=== PATIENT | female | born 1945 | race Caucasian/White ===

== ENCOUNTER 2017-07-06 19:28 | Emergency (ER) | END 2017-07-06 22:37 | disposition home or self-care (01) ==

== ENCOUNTER 2017-07-28 13:10 | Emergency (ER) | END 2017-07-28 14:30 | disposition home or self-care (01) ==

== ENCOUNTER 2017-12-20 18:40 | Emergency (ER) | END 2017-12-20 23:00 | disposition home or self-care (01) ==

== ENCOUNTER 2018-09-19 10:11 | Observation (INO) | payer MEDICARE, OTHER ==
[~2018-09-19] VITALS: Wt 81.2 kg
[~2018-09-19 10:11] MED LIST: ACET1TAB40 PO; AMLO5TAB4 PO; CEPH-443 PO; CLON0.3T PO; CLON1PAT3 TD; CLOT15CR6 TOP; CRES20 PO; DONE10TA7 PO; ESOM40CA PO; HYDR-3980 PO; HYDR25TA6 PO; LEVO25TA6 PO; LINA145C PO; LORA-441 PO; LOSA1TAB25 PO; MECL-77 PO; METF500T24 PO; MIRT30TA5 PO; NAPR-688 PO; ONDA4TAB14 PO; TRAM50TA PO; TRIA15CR55 TOP; VERA120C2 PO; ZOLP5TAB7 PO
[2018-09-19 10:15] VITALS: Wt 81.2 kg
[2018-09-19] MEDS ORDERED: PANTOPRAZOLE 40 MG INJ IV STA (10:44)
[2018-09-19] MEDS ORDERED: SOD CHLORIDE 0.9% 1,000 ML IV STA (10:44)
[2018-09-19] MEDS ORDERED: ONDANSETRON 4 MG INJ IV STA ×2 (10:44→12:59)
[2018-09-19] MEDS ORDERED: FAMOTIDINE 20 MG TAB PO STA (10:46)
[2018-09-19] MEDS ORDERED: BELLADONNA/PHENOBARBITAL TAB PO STA (10:46)
[2018-09-19] MEDS ORDERED: KETOROLAC 15 MG INJ IV STA (10:46)
[2018-09-19] MEDS ORDERED: LIDOCAINE/MYLANTA 40 ML BTL PO STA (10:46)
[2018-09-19] MEDS ORDERED: LORAZEPAM 2 MG INJ IV ONE (11:00)
--- NOTE | 2018-09-19 11:14 | ERD ---
ER Documentation Chief Complaint Chief Complaint AP WITH NAUSEA TODAY HPI 73-year-old woman complaining of sharp nonexertional nonradiating epigastric abdominal pain, burning throat pain, belching, bloating, upper abdominal distention x2 days. She has had severe nausea has been eating less due to nausea but denies vomiting. She denies blood per rectum or melena, no chest pain or shortness of breath, no headache or blurry vision. Patient does have a history of gastritis but ran out of her gastritis medications a few months ago, upper endoscopy performed about 10 years ago that she states revealed gastritis. ROS All systems reviewed and are negative except as per history of present illness. Medications Home Meds Active Scripts Ondansetron (Ondansetron Odt) 4 Mg Tab.rapdis, 4 MG PO Q6H PRN for NAUSEA AND/OR VOMITING, #10 TAB Prov:WILLIE FARIAS MD 12/20/17 Reported Medications Acetaminophen* (Acetaminophen*) 500 MG Extra Strength Tablet, 500 MG PO Q4H PRN for PAIN AND OR ELEVATED TEMP, TAB 09/19/18 Nitroglycerin* (Nitrostat*) 0.4 Mg Tab.subl, 0.4 MG SL Q5MIN PRN for CHEST PAIN, BOTTLE 09/19/18 Hydralazine Hcl* (Hydralazine Hcl*) 100 Mg Tablet, 1 TAB ORAL TID 09/19/18 Diltiazem Hcl (DILTIAZEM 24HR CD) 180 Mg Cap.er.24h, 1 CAP ORAL DAILY 09/19/18 Metoprolol Tartrate (Metoprolol Tartrate) 100 Mg Tablet, 1 TAB ORAL BID 09/19/18 Aspirin (Aspirin) 81 Mg Chew, 1 TAB ORAL DAILY 09/19/18 Triamcinolone Acetonide* (Kenalog*) 0.1%-15GM Cr, 1 APPLIC TOP TID, #1 TUB 07/06/17 Donepezil* (Donepezil*) 10 Mg Tablet, 10 MG PO DAILY, #30 TAB 07/06/17 Linaclotide (LINZESS) 145 Mcg Capsule, 145 MCG PO DAILY, #30 CAP 07/06/17 Rosuvastatin Calcium* (Crestor*) 20 Mg Tablet, 20 MG PO QHS, #30 TAB 07/06/17 Esomeprazole Mag Trihydrate (Nexium) 40 Mg Capsule.dr, 40 MG PO DAILY, #30 CAP 07/06/17 Mirtazapine* (Mirtazapine*) 30 Mg Tablet, 30 MG PO DAILY, TAB 07/06/17 Losartan-Hydrochlorothiazide (Losartan-HCTZ) 100-25 Mg Tab, 1 TAB PO DAILY, TAB 07/06/17 Zolpidem Tartrate* (Zolpidem Tartrate*) 5 Mg Tablet, 5 MG PO QHS PRN for INSOMNIA, #30 TAB 07/06/17 Amlodipine Besylate* (Norvasc*) 5 Mg Tablet, 5 MG PO DAILY, TAB 07/06/17 Verapamil Hcl* (Verapamil ER*) 120 Mg Cap24h.pel, 120 MG PO DAILY, CAP 07/06/17 Clotrimazole-Betamethasone Diprop (Clotrimazole-Betamethasone Diprop) 15 Gm Cream.gm., 1 APPLIC TOP BID, TUB 07/06/17 Clonidine Patch (CLONIDINE PATCH) 0.3 Mg/24 Hr Patch, 1 PATCH.WK TD Q7D, #4 PATCH.WK ON Monday07/06/17 Levothyroxine Sodium* (Levothyroxine Sodium*) 25 Mcg Tablet, 25 MCG PO BEFORE BREAKFAST, #30 TAB 07/06/17 Meclizine Hcl* (Meclizine Hcl*) 25 Mg Tablet, 25 MG PO BID PRN for DIZZINESS, TAB 07/06/17 Clonidine Hcl* (Clonidine Hcl*) 0.3 Mg Tablet, 0.3 MG PO TID PRN for HTN, TAB 07/06/17 Discontinued Reported Medications Tramadol Hcl* (Ultram*) 50 Mg Tablet, 50 MG PO BID PRN for PAIN, TAB 07/06/17 Metformin Hcl* (Metformin Hcl*) 500 Mg Tablet, 500 MG PO WITH BREAKFAST DINNE, #60 TAB 07/06/17 Naproxen* (Naproxen*) 500 Mg Tablet, 500 MG PO DAILY, TAB 07/06/17 Hydrochlorothiazide* (Hydrochlorothiazide*) 25 Mg Tab, 25 MG PO DAILY, #30 TAB 07/06/17 Acetaminophen with Codeine (Acetaminophen-Cod #3 Tablet) 1 Each Tablet, 1 TAB PO DAILY PRN for NEEDED, #20 TAB 07/06/17 Discontinued Scripts Hydrocodone/Acetaminophen ([place] 10-325 Tablet) 1 Each Tablet, 1 TAB PO Q6H PRN for PAIN, #7 TAB Prov:WILLIE FARISA MD 12/20/17 Lorazepam* (Ativan*) 0.5 Mg Tablet, 0.5 MG PO TID PRN for ANXIETY, #12 TAB Prov:JIN PEDRAZA MD 07/28/17 Cephalexin* (Keflex*) 500 Mg Capsule, 500 MG PO QID for 5 Days, CAP Prov:JIN PEDRAZA MD 07/28/17 Allergies Allergies: Coded Allergies: No Known Allergies (Verified Allergy, Unknown, 09/19/18) PMhx/Soc History of gastritis status post upper endoscopy about 10 years ago, hypertension, anxiety, hypothyroidism, atrial fibrillation History of Surgery: No Anesthesia Reaction: No Hx Neurological Disorder: No Hx Respiratory Disorders: No Hx Cardiac Disorders: Yes (HTN) Hx Psychiatric Problems: No Hx Miscellaneous Medical Probl: Yes (HTN) Hx Alcohol Use: No Hx Substance Use: No Hx Tobacco Use: No Smoking Status: Never smoker FmHx Family History: No diabetes Physical Exam Vitals Vital Signs Date Temp Pulse Resp B/P (MAP) Pulse Ox O2 O2 Flow FiO2 Time Delivery Rate 09/19/18 85 18 122/72 100 Room Air 12:14 (89) 09/19/18 98.4 86 18 177/105 98 10:15 (129) Physical Exam GENERAL: Well-developed, well-nourished, appears dehydrated, afebrile, anxious HEENT: Dry mucous membranes, pink conjunctiva, no cervical spine tenderness or step-off deformities, no goiter, no jaundice or icterus, extraocular movements intact without pain. No submandibular induration, and no pharyngeal erythema NEURO: Alert and oriented 3, cranial nerves II through XII intact bilaterally, pupils equal round reactive to light, no focal deficits or facial asymmetry, sensation intact distally Strength 5/5 in upper and lower extremities bilaterally CARDIAC: Regular rate and rhythm, no murmurs rubs or gallops LUNGS: Clear bilaterally no wheezing crackles or stridor ABDOMEN: Soft nontender, no guarding, no rigidity, no rebound, no psoas sign no obturator sign. SKIN: Warm and dry to touch, no abrasions, contusions, or hematomas, no lacerations, no ecchymosis, no target lesions, and without ulcers EXTREMITIES: No clubbing cyanosis or edema, calves are bilaterally symmetrical, no Homans sign, no popliteal cord sign. Distal pulses equal and bilateral PSYCH: Acutely anxious Result Diagram: 09/19/18 1108 09/19/18 1108 Results 24 hrs Laboratory Tests Test 09/19/18 11:08 White Blood Count 8.0 10^3/ul Red Blood Count 4.56 10^6/ul Hemoglobin 13.1 g/dl Hematocrit 40.8 % Mean Corpuscular Volume 89.5 fl Mean Corpuscular Hemoglobin 28.7 pg Mean Corpuscular Hemoglobin Concent 32.1 g/dl Red Cell Distribution Width 13.2 % Platelet Count 355 10^3/UL Mean Platelet Volume 10.2 fl Immature Granulocytes % 0.400 % Neutrophils % 67.0 % Lymphocytes % 26.9 % Monocytes % 4.6 % Eosinophils % 0.9 % Basophils % 0.2 % Nucleated Red Blood Cells % 0.0 /100WBC Immature Granulocytes # 0.030 10^3/ul Neutrophils # 5.4 10^3/ul Lymphocytes # 2.2 10^3/ul Monocytes # 0.4 10^3/ul Eosinophils # 0.1 10^3/ul Basophils # 0.0 10^3/ul Nucleated Red Blood Cells # 0.0 10^3/ul Prothrombin Time 11.7 Sec Prothrombin Time Ratio 0.9 INR International Normalized Ratio 0.85 Activated Partial Thromboplast Time 28.6 Sec Sodium Level 143 mmol/L Potassium Level 5.0 mmol/L Chloride Level 110 mmol/L Carbon Dioxide Level 22 mmol/L Anion Gap 11 Blood Urea Nitrogen 13 mg/dl Creatinine 0.71 mg/dl Est Glomerular Filtrat Rate mL/min mL/min Glucose Level 116 mg/dl Calcium Level 9.9 mg/dl Total Bilirubin 0.3 mg/dl Direct Bilirubin 0.00 mg/dl Indirect Bilirubin 0.3 mg/dl Aspartate Amino Transf (AST/SGOT) 24 IU/L Alanine Aminotransferase (ALT/SGPT) 21 IU/L Alkaline Phosphatase 86 IU/L Troponin I < 0.012 ng/ml Total Protein 7.8 g/dl Albumin 4.2 g/dl Globulin 3.60 g/dl Albumin/Globulin Ratio 1.16 Lipase 182 U/L Current Medications Medications Dose Sig/Anjelica Start Time Status Last (Trade) Ordered Route PRN Stop Time Admin Dose Reason Admin Lorazepam 0.5 mg ONCE ONCE 09/19/18 DC 09/19/18 (Ativan) IV 11:00 09/19/18 10:58 11:01 Sodium 1,000 ml @ Q1H STAT 09/19/18 DC 09/19/18 Chloride 1,000 mls/hr IV 10:44 09/19/18 10:56 11:43 40 mg ONCE STAT 09/19/18 DC 09/19/18 Pantoprazole IV 10:44 09/19/18 10:59 (Protonix 10:46 Iv) Ondansetron 4 mg ONCE STAT 09/19/18 DC 09/19/18 HCl (Zofran IV 10:44 09/19/18 10:58 Inj) 10:46 Famotidine 20 mg ONCE STAT 09/19/18 DC 09/19/18 (Pepcid) PO 10:46 09/19/18 10:58 10:47 40 ml ONCE STAT 09/19/18 DC 09/19/18 Miscellaneous PO 10:46 09/19/18 10:58 Medication 10:47 (Gi Cocktail (2)) Belladonna/ 2 tab ONCE STAT 09/19/18 DC 09/19/18 Phenobarbital PO 10:46 09/19/18 10:58 () 10:47 Ketorolac 15 mg ONCE STAT 09/19/18 DC 09/19/18 Tromethamine IV 10:46 09/19/18 10:58 (Toradol) 10:47 Morphine 4 mg ONCE STAT 09/19/18 DC Sulfate IV 12:59 09/19/18 (morphine) 13:00 Ondansetron 4 mg ONCE STAT 09/19/18 DC HCl (Zofran IV 12:59 09/19/18 Inj) 13:00 [facility] IV line was established patient was placed on quality assurance monitor body rhythm strip revealed a sinus rhythm at about 80 bpm with upright P and T waves. Patient was afebrile EKG performed, read by me revealed an atrial fibrillation rate controlled at 85 bpm, left axis deviation, narrow QRS complex, no concerning ST elevations or depressions noted 1 view chest x-ray performed, read by me revealed linear atelectasis in the right lung, no air under the diaphragm, no pneumothorax, no acute infiltrates I administered 500 cc normal saline IV, lorazepam 0.5 mg IV, Toradol 15 mg IV, Zofran 4 mg IV, Protonix 40 mg IV, famotidine 20 mg p.o., GI cocktail p.o. For continued abdominal pain administered morphine 4 mg IV and another dose of Zofran 4 mg IV CBC and electrolytes were normal, liver function tests normal, troponin negative, urinalysis is pending I will follow-up. I paged Dr. Judith GLASGOW regarding the patient's presentation and symptomatology. Patient will be admitted to [facility] for continued medical management, IV hydration, pain control, possible upper endoscopy pending GI consultation Departure Diagnosis: Primary Impression: Abdominal pain Abdominal location: epigastric Qualified Codes: R10.13 - Epigastric pain Additional Impressions: Acute anxiety Intractable abdominal pain Intractable nausea and vomiting Vomiting type: unspecified Qualified Codes: R11.2 - Nausea with vomiting, unspecified Gastritis Gastritis type: unspecified gastritis Chronicity: acute Gastritis bleeding: without bleeding Qualified Codes: K29.00 - Acute gastritis without bleeding Condition: Stable JIN PEDRAZA MD September 19, 2018 11:14
[2018-09-19] MEDS ORDERED: ASPI-831 ORAL (11:38)
[2018-09-19] MEDS ORDERED: NITR0.4T39 SL (11:38)
[2018-09-19] MEDS ORDERED: DILT180C81 ORAL (11:38)
[2018-09-19] MEDS ORDERED: METO100T11 ORAL (11:38)
[2018-09-19] MEDS ORDERED: HYDR100T25 ORAL (11:38)
[2018-09-19] MEDS ORDERED: ACET-141 PO (11:40)
[2018-09-19] MEDS ORDERED: morphine 4 MG/ML VIAL IV STA (12:59)
--- NOTE | 2018-09-19 13:46 | CONS ---
Assessment/Plan Assessment/Plan Hospital Course (Demo Recall) Assessment: Epigastric pain -R/o gastritis vs PUD vs other Nausea- without vomiting Bloating/gas HTN Assessment: PPI BID Simethicone PRN Clear liquid diet Npo after 09/20/18 0600 EGD tomorrow -Risk/benefits of sedation and procedure have been reviewed and patient agrees to move forward with procedure tomorrow Patient seen in collaboration with Dr. 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 She denies overt signs of GI bleed including melena, hematochezia, or hematemesis. Her last upper endoscopy was completed in 2009 showing some nodularity in the stomach as well as gastritis, colonoscopy was completed at that time positive for polyps. Pathology was not available to review. Time evaluation patient complained of significant epigastric pain with mild palpation she is noted to have elevated heart rate and blood pressure at this time. Her members at bedside who states patient does take Motrin or Advil however patient denies this. Discussed plan for upper endoscopy reviewed risk/benefits of both procedure and sedation understanding was verbalized and patient agreed to move forward with procedure. Review of Systems: A 12 system, review was conducted and is negative except as noted in the HPI or here. Past Medical History Home Meds Active Scripts Ondansetron (Ondansetron Odt) 4 Mg Tab.rapdis, 4 MG PO Q6H PRN for NAUSEA AND/OR VOMITING, #10 TAB Prov:WILLIE FARIAS MD 12/20/17 Reported Medications Acetaminophen* (Acetaminophen*) 500 MG Extra Strength Tablet, 500 MG PO Q4H PRN for PAIN AND OR ELEVATED TEMP, TAB 09/19/18 Nitroglycerin* (Nitrostat*) 0.4 Mg Tab.subl, 0.4 MG SL Q5MIN PRN for CHEST PAIN, BOTTLE 09/19/18 Hydralazine Hcl* (Hydralazine Hcl*) 100 Mg Tablet, 1 TAB ORAL TID 09/19/18 Diltiazem Hcl (DILTIAZEM 24HR CD) 180 Mg Cap.er.24h, 1 CAP ORAL DAILY 09/19/18 Metoprolol Tartrate (Metoprolol Tartrate) 100 Mg Tablet, 1 TAB ORAL BID 09/19/18 Aspirin (Aspirin) 81 Mg Chew, 1 TAB ORAL DAILY 09/19/18 Triamcinolone Acetonide* (Kenalog*) 0.1%-15GM Cr, 1 APPLIC TOP TID, #1 TUB 07/06/17 Donepezil* (Donepezil*) 10 Mg Tablet, 10 MG PO DAILY, #30 TAB 07/06/17 Linaclotide (LINZESS) 145 Mcg Capsule, 145 MCG PO DAILY, #30 CAP 07/06/17 Rosuvastatin Calcium* (Crestor*) 20 Mg Tablet, 20 MG PO QHS, #30 TAB 07/06/17 Esomeprazole Mag Trihydrate (Nexium) 40 Mg Capsule.dr, 40 MG PO DAILY, #30 CAP 07/06/17 Mirtazapine* (Mirtazapine*) 30 Mg Tablet, 30 MG PO DAILY, TAB 07/06/17 Losartan-Hydrochlorothiazide (Losartan-HCTZ) 100-25 Mg Tab, 1 TAB PO DAILY, TAB 07/06/17 Zolpidem Tartrate* (Zolpidem Tartrate*) 5 Mg Tablet, 5 MG PO QHS PRN for INSOM BANDAR, #30 TAB 07/06/17 Amlodipine Besylate* (Norvasc*) 5 Mg Tablet, 5 MG PO DAILY, TAB 07/06/17 Verapamil Hcl* (Verapamil ER*) 120 Mg Cap24h.pel, 120 MG PO DAILY, CAP 07/06/17 Clotrimazole-Betamethasone Diprop (Clotrimazole-Betamethasone Diprop) 15 Gm Cream.gm., 1 APPLIC TOP BID, TUB 07/06/17 Clonidine Patch (CLONIDINE PATCH) 0.3 Mg/24 Hr Patch, 1 PATCH.WK TD Q7D, #4 PATCH.WK ON Monday07/06/17 Levothyroxine Sodium* (Levothyroxine Sodium*) 25 Mcg Tablet, 25 MCG PO BEFORE BREAKFAST, #30 TAB 07/06/17 Meclizine Hcl* (Meclizine Hcl*) 25 Mg Tablet, 25 MG PO BID PRN for DIZZINESS, TAB 07/06/17 Clonidine Hcl* (Clonidine Hcl*) 0.3 Mg Tablet, 0.3 MG PO TID PRN for HTN, TAB 07/06/17 Discontinued Reported Medications Tramadol Hcl* (Ultram*) 50 Mg Tablet, 50 MG PO BID PRN for PAIN, TAB 07/06/17 Metformin Hcl* (Metformin Hcl*) 500 Mg Tablet, 500 MG PO WITH BREAKFAST DINNE, #60 TAB 07/06/17 Naproxen* (Naproxen*) 500 Mg Tablet, 500 MG PO DAILY, TAB 07/06/17 Hydrochlorothiazide* (Hydrochlorothiazide*) 25 Mg Tab, 25 MG PO DAILY, #30 TAB 07/06/17 Acetaminophen with Codeine (Acetaminophen-Cod #3 Tablet) 1 Each Tablet, 1 TAB PO DAILY PRN for NEEDED, #20 TAB 07/06/17 Discontinued Scripts Hydrocodone/Acetaminophen ([place] 10-325 Tablet) 1 Each Tablet, 1 TAB PO Q6H PRN for PAIN, #7 TAB Prov:WILLIE FARIAS MD 12/20/17 Lorazepam* (Ativan*) 0.5 Mg Tablet, 0.5 MG PO TID PRN for ANXIETY, #12 TAB Prov:JIN PEDRAZA MD 07/28/17 Cephalexin* (Keflex*) 500 Mg Capsule, 500 MG PO QID for 5 Days, CAP Prov:JIN PEDRAZA MD 07/28/17 Allergies: Coded Allergies: No Known Allergies (Verified Allergy, Unknown, 09/19/18) Social History Smoking Status: Never smoker Exam/Review of Systems Exam Vitals Vital Signs Date Temp Pulse Resp B/P (MAP) Pulse Ox O2 O2 Flow FiO2 Time Delivery Rate 09/19/18 85 18 122/72 100 Room Air 12:14 (89) 09/19/18 98.4 10:15 Exam PHYSICAL EXAMINATION: GENERAL: Alert & oriented x 3, in no acute distress SKIN: No lesions HEAD: Normocephalic, atraumatic, no tenderness. EYES: Pupils equal reactive to light and accommodation, no discharge. EARS/NOSE AND THROAT: Ears normal, nose normal. NECK: Supple, no masses, thyroid normal. CHEST: Inspection within normal limits. CARDIOVASCULAR: Heart: Regular rate and rhythm RESPIRATORY: Lungs clear to auscultation. GASTROINTESTINAL AND LIVER: Abdomen: Soft, epigastric pain worse with palpation, non-distended, no hernias, no masses, no organomegaly, no ascites, no guarding, no rebound tenderness, normoactive bowel sounds. Rectal: Deferred. Results Result Diagram: 09/19/18 1108 09/19/18 1108 Results 24hrs Laboratory Tests Test 09/19/18 11:08 White Blood Count 8.0 Red Blood Count 4.56 Hemoglobin 13.1 Hematocrit 40.8 Mean Corpuscular Volume 89.5 Mean Corpuscular Hemoglobin 28.7 L Mean Corpuscular Hemoglobin Concent 32.1 Red Cell Distribution Width 13.2 Platelet Count 355 Mean Platelet Volume 10.2 Immature Granulocytes % 0.400 Neutrophils % 67.0 Lymphocytes % 26.9 Monocytes % 4.6 Eosinophils % 0.9 Basophils % 0.2 Nucleated Red Blood Cells % 0.0 Immature Granulocytes # 0.030 Neutrophils # 5.4 Lymphocytes # 2.2 Monocytes # 0.4 Eosinophils # 0.1 Basophils # 0.0 Nucleated Red Blood Cells # 0.0 Prothrombin Time 11.7 L Prothrombin Time Ratio 0.9 INR International Normalized Ratio 0.85 Activated Partial Thromboplast Time 28.6 Sodium Level 143 Potassium Level 5.0 Chloride Level 110 Carbon Dioxide Level 22 Anion Gap 11 Blood Urea Nitrogen 13 Creatinine 0.71 Est Glomerular Filtrat Rate mL/min Glucose Level 116 Calcium Level 9.9 Total Bilirubin 0.3 Direct Bilirubin 0.00 Indirect Bilirubin 0.3 Aspartate Amino Transf (AST/SGOT) 24 Alanine Aminotransferase (ALT/SGPT) 21 Alkaline Phosphatase 86 Troponin I < 0.012 Total Protein 7.8 Albumin 4.2 Globulin 3.60 H Albumin/Globulin Ratio 1.16 Lipase 182 INDU KLEIN September 19, 2018 13:46
[2018-09-19] MEDS ORDERED: MECLIZINE 25 MG TAB PO PRN (14:30)
[2018-09-19] MEDS ORDERED: hydrALAzine 20 MG INJ IV PRN (14:30)
[2018-09-19] MEDS ORDERED: LORAZEPAM 2 MG INJ IV PRN (14:30)
[2018-09-19] MEDS ORDERED: NACL 0.9% 3 ML SYG IV SCH (14:30)
[2018-09-19] MEDS ORDERED: HYDROCODONE/APAP (5/325) TAB PO PRN (14:30)
[2018-09-19] MEDS ORDERED: morphine 2 MG INJ IV PRN (14:30)
[2018-09-19] MEDS ORDERED: NITROGLYCERIN (SL) 0.4 MG TAB SL PRN (14:30)
[2018-09-19] MEDS ORDERED: ALBUTEROL/IPRATROPIUM (NEB) 3 ML AMP HHN PRN (14:30)
[2018-09-19] MEDS ORDERED: DOCUSATE SODIUM 100 MG CAP PO PRN (14:30)
[2018-09-19] MEDS ORDERED: ZOLPIDEM 5 MG TAB PO PRN (14:30)
[2018-09-19] MEDS ORDERED: MAGNESIUM HYDROXIDE 30ML CUP PO PRN (14:30)
[2018-09-19] MEDS: SOD CHLORIDE 0.45% 1,000 ML IV SCH ×2 (15:30→20:13)
--- NOTE | 2018-09-19 15:51 | HP ---
DATE OF ADMISSION: 09/19/2018 IDENTIFICATION: This is a 73-year-old female. CHIEF COMPLAINT: Epigastric pain. HISTORY OF PRESENT ILLNESS: A 73-year-old female with past medical history of hypertension, hypothyr oidism, possible anxiety, questionable diabetes, who comes in with epigastric pain. Most of the info rmation is obtained from ER documentation as the patient is unable to provide full HPI secondary to a language barrier at this time. Some subjective fevers. Her symptoms have been going on for the las t 2 days. She had some nausea symptoms, but not vomiting. In the ER, to the staff she denied chest pain or shortness of breath, no upper or lower GI bleeding. That is the full extent of the review o f systems that could be obtained at this time. Apparently the patient has a prior history of gastrit is as well, ran out of her medications for this a few months ago. When she arrived, she was seen by GI team and in the ER today, she had elevated blood pressure 177/105 and also for epigastric pain she received pain control medications and GI cocktail as well as Pepcid and Protonix. PAST MEDICAL HISTORY: As stated above. ALLERGIES: No known drug allergies. MEDICATIONS AT HOME: Based on records: 1. Donepezil 10 mg daily. 2. Norvasc 5 mg daily. 3. Clonidine 0.3 mg p.o. t.i.d. p.r.n. 4. Clonidine patch 0.3 mg q.24h q. weekly. 5. Diltiazem 180 mg daily. 6. Hydralazine 100 mg t.i.d. 7. Losartan/hydrochlorothiazide 100/25 one tab daily. 8. Metoprolol 100 mg b.i.d. 9. Crestor 20 mg at bedtime. 10. Nitroglycerin sublingual p.r.n. 11. Verapamil 120 mg daily. 12. Extra strength Tylenol 500 mg. p.r.n. 13. Aspirin 81 mg daily. 14. Mirtazapine 30 mg daily. 15. Ambien 5 mg p.o. at bedtime p.r.n. 16. Nexium 40 mg daily. 17. Linzess 145 mcg daily. 18. Meclizine 25 mg p.o. b.i.d. p.r.n. 19. Zofran 4 mg p.o. q.6h. p.r.n. 20. Levothyroxine 25 mcg every morning. 21. Kenalog apply topically t.i.d. PAST SURGICAL HISTORY: Unknown. SOCIAL HISTORY: Negative for smoking or drinking or IV drug abuse. FAMILY HISTORY: Noncontributory. PHYSICAL EXAMINATION: VITAL SIGNS: T-max 98.4, pulse 85, respirations 18, blood pressure to 177-122 systolic over 105-72 d iastolic, satting at 98% on room air. GENERAL: The patient is lying in bed, answering questions appropriately, in no acute distress. HEENT: Pupils equal, round, reactive to light. Extraocular muscles intact. NECK: Supple, no thyromegaly. LUNGS: Clear to auscultation bilaterally. CARDIOVASCULAR: S1, S2 heard. No rubs or gallops. ABDOMEN: Tender to palpation in epigastric area, but otherwise no rebound or guarding. Normal bowel sounds, nondistended. MUSCULOSKELETAL: No lower extremity edema bilaterally. NEUROLOGIC: No focal deficits. LABORATORIES: CBC is normal. The basic metabolic panel was normal as well. Comprehensive metabolic panel is normal. Troponin is negative x1. Lipase is normal. The patient had a chest x-ray today s hows mild cardiomegaly, calcified aorta consistent with atherosclerotic disease, right lower lobe maco ear atelectatic changes. CT scan of abdomen and pelvis was ordered, results are still pending. ASSESSMENT AND PLAN: A 73-year-old female with prior history of hypertension, gastritis, and hypothy roidism who presents with epigastric pain for the last 2 days, epigastric pain, likely secondary to g astritis. Denies any upper or lower GI bleeding. 1. Admit the patient, put on low-dose IV fluids. Appreciate GI consult. They are planning for EGD in the next 24 hours, should be on Simethicone p.r.n and on clear liquid diet. 2. Get PT, OT and speech therapy consult as well. 3. Check TSH, A1c, lipid panel. 4. Hypertension. The patient takes multiple blood pressure medicines at home. She did come in with mild borderline hypertensive urgency, which is improved now. Continue current p.o. blood pressure m edicines. Should be on hydralazine and clonidine p.r.n. as well, systolic greater than 160. 5. History of hypothyroidism. Continue levothyroxine. Follow up thyroid panel. 6. Gastrointestinal prophylaxis. PPI. 7. TB prophylaxis, SCDs. Dictated By: DELGADO SIMMONS Conf#: [id number] DID#: [id number]
[2018-09-19] MEDS: PANTOPRAZOLE 40 MG INJ IV SCH (17:15)
[2018-09-19 19:08] VITALS: BP 133/75; PULSE 110; RESP 18
[2018-09-19] MEDS: ONDANSETRON 4 MG INJ IV PRN (20:13)
[2018-09-19] MEDS: ATORVASTATIN 80 MG TAB PO SCH (20:24)
[2018-09-19] MEDS: METOPROLOL 100 MG TAB PO SCH (20:24)
[2018-09-19 20:25] VITALS: BP 177/95; PULSE 118
[2018-09-19] MEDS: TRIAMCINOLONE ACET 0.1% 15 GM CR TOP SCH (21:00)
[2018-09-19] MEDS ORDERED: NON-FORMULARY/PATIENT OWN MED (Rosuvastatin Calcium* (Crestor*) 20 MG) PO SCH (21:00)
[2018-09-19] MEDS: BETAMETHASONE/CLOTRIMAZOLE 15 GM CR TOP SCH (21:00)
[2018-09-19 22:26] VITALS: PULSE 82
[2018-09-19 22:27] VITALS: BP 164/101; PULSE 76; RESP 18
[2018-09-19] MEDS: ACETAMINOPHEN 325 MG TAB PO PRN (23:59)
[2018-09-20] VITALS (19 sets, daily range): BP systolic 92–191; BP diastolic 60–99; PULSE 22–120; RESP 15–22
[2018-09-20] MEDS: ONDANSETRON 4 MG INJ IV PRN (02:53)
[2018-09-20] MEDS: SOD CHLORIDE 0.45% 1,000 ML IV SCH ×2 (03:26→16:46)
[2018-09-20] MEDS: PANTOPRAZOLE 40 MG INJ IV SCH ×2 (06:05→17:26)
[2018-09-20] MEDS: LEVOTHYROXINE 25 MCG TAB PO SCH (06:05)
[2018-09-20] MEDS ORDERED: PROPOFOL 200 MG INJ ONE (07:00)
[2018-09-20] MEDS: METOPROLOL 100 MG TAB PO SCH ×2 (08:21→21:29)
[2018-09-20] MEDS: MIRTAZAPINE 15 MG TAB PO SCH (08:22)
[2018-09-20] MEDS: AMLODIPINE 5 MG TAB PO SCH (08:22)
--- NOTE | 2018-09-20 10:34 | PN ---
Date/Time of Note Date/Time of Note DATE: 09/20/18 TIME: 10:31 Assessment/Plan VTE Prophylaxis Risk score (from Ns)>0 risk: 3 SCD applied (from Ns): Yes Pharmacological prophylaxis: other Lines/Catheters IV Catheter Type (from [facility]): Peripheral IV Assessment/Plan Hospital Course S: Patient seen by GI team yesterday. Did have a brief episode of rapid heart rate overnight, which did not sustain and is now well controlled. Denies any epigastric pain. O: VS - see below PHYSICAL EXAMINATION: GENERAL: lying in bed, answering questions appropriately, in no acute distress. HEENT: Pupils equal, round, reactive to light. Extraocular muscles intact. NECK: Supple, no thyromegaly. LUNGS: Clear to auscultation bilaterally. CARDIOVASCULAR: S1, S2 heard. No rubs or gallops. ABDOMEN: Tender to palpation in epigastric area, but otherwise no rebound or guarding. Normal bowel sounds, nondistended. MUSCULOSKELETAL: No lower extremity edema bilaterally. NEUROLOGIC: No focal deficits. ASSESSMENT AND PLAN: 73-year-old female with prior history of hypertension, gastritis, and hypothyroidism who presents with epigastric pain for the last 2 days. # Epigastric pain- likely secondary to gastritis. Denies any upper or lower GI bleeding. -Continue low-dose IV fluids. -Per GI consult, planning for EGD later today, follow-up post procedure results of this -Follow recommendations from PT, OT and speech therapy consult as well. # Hypertension-blood pressure controlled this morning. Patient takes multiple blood pressure medicines at home. She did come in with mild borderline hyperte nsive urgency, which is improved now. - Continue current p.o. blood pressure medicines. - hydralazine IV and clonidine p.r.n. as well, systolic greater than 160. # History of hypothyroidism. - Continue levothyroxine. Follow up thyroid panel. # Gastrointestinal prophylaxis. PPI. # DVT prophylaxis, SCDs. Result Diagram: 09/20/1843 09/20/1843 Results 24hrs Laboratory Tests Test 09/19/18 11:08 09/19/18 11:09 09/20/18 05:43 White Blood Count 8.0 8.1 Red Blood Count 4.56 4.44 Hemoglobin 13.1 12.8 Hematocrit 40.8 39.7 Mean Corpuscular Volume 89.5 89.4 Mean Corpuscular Hemoglobin 28.7 L 28.8 L Mean Corpuscular Hemoglobin Concent 32.1 32.2 Red Cell Distribution Width 13.2 13.1 Platelet Count 355 349 Mean Platelet Volume 10.2 10.5 H Immature Granulocytes % 0.400 0.500 H Neutrophils % 67.0 65.7 Lymphocytes % 26.9 27.5 Monocytes % 4.6 5.0 Eosinophils % 0.9 0.9 Basophils % 0.2 0.4 Nucleated Red Blood Cells % 0.0 0.0 Immature Granulocytes # 0.030 0.040 H Neutrophils # 5.4 5.3 Lymphocytes # 2.2 2.2 Monocytes # 0.4 0.4 Eosinophils # 0.1 0.1 Basophils # 0.0 0.0 Nucleated Red Blood Cells # 0.0 0.0 Prothrombin Time 11.7 L Prothrombin Time Ratio 0.9 INR International Normalized Ratio 0.85 Activated Partial Thromboplast Time 28.6 Sodium Level 143 142 Potassium Level 5.0 3.8 Chloride Level 110 111 H Carbon Dioxide Level 22 21 Anion Gap 11 10 Blood Urea Nitrogen 13 10 Creatinine 0.71 0.65 Est Glomerular Filtrat Rate mL/min Glucose Level 116 107 Calcium Level 9.9 9.4 Total Bilirubin 0.3 Direct Bilirubin 0.00 Indirect Bilirubin 0.3 Aspartate Amino Transf (AST/SGOT) 24 Alanine Aminotransferase (ALT/SGPT) 21 Alkaline Phosphatase 86 Troponin I < 0.012 Total Protein 7.8 Albumin 4.2 Globulin 3.60 H Albumin/Globulin Ratio 1.16 Lipase 182 Free Thyroxine 1.50 Hemoglobin A1c 5.7 Phosphorus Level 4.1 Magnesium Level 2.0 Triglycerides Level 145 Cholesterol Level 268 H LDL Cholesterol, Calculated 186 HDL Cholesterol 53 Cholesterol/HDL Ratio 5.0 Thyroid Stimulating Hormone (TSH) 0.607 Exam/Review of Systems Exam Vitals Vital Signs Date Temp Pulse Resp B/P (MAP) Pulse Ox O2 O2 Flow FiO2 Time Delivery Rate 09/20/18 98.1 72 19 177/99 97 07:07 (125) 09/19/18 Room Air 17:17 Results Results 24hrs Laboratory Tests Test 09/19/18 11:08 09/19/18 11:09 09/20/18 05:43 White Blood Count 8.0 8.1 Red Blood Count 4.56 4.44 Hemoglobin 13.1 12.8 Hematocrit 40.8 39.7 Mean Corpuscular Volume 89.5 89.4 Mean Corpuscular Hemoglobin 28.7 L 28.8 L Mean Corpuscular Hemoglobin Concent 32.1 32.2 Red Cell Distribution Width 13.2 13.1 Platelet Count 355 349 Mean Platelet Volume 10.2 10.5 H Immature Granulocytes % 0.400 0.500 H Neutrophils % 67.0 65.7 Lymphocytes % 26.9 27.5 Monocytes % 4.6 5.0 Eosinophils % 0.9 0.9 Basophils % 0.2 0.4 Nucleated Red Blood Cells % 0.0 0.0 Immature Granulocytes # 0.030 0.040 H Neutrophils # 5.4 5.3 Lymphocytes # 2.2 2.2 Monocytes # 0.4 0.4 Eosinophils # 0.1 0.1 Basophils # 0.0 0.0 Nucleated Red Blood Cells # 0.0 0.0 Prothrombin Time 11.7 L Prothrombin Time Ratio 0.9 INR International Normalized Ratio 0.85 Activated Partial Thromboplast Time 28.6 Sodium Level 143 142 Potassium Level 5.0 3.8 Chloride Level 110 111 H Carbon Dioxide Level 22 21 Anion Gap 11 10 Blood Urea Nitrogen 13 10 Creatinine 0.71 0.65 Est Glomerular Filtrat Rate mL/min Glucose Level 116 107 Calcium Level 9.9 9.4 Total Bilirubin 0.3 Direct Bilirubin 0.00 Indirect Bilirubin 0.3 Aspartate Amino Transf (AST/SGOT) 24 Alanine Aminotransferase (ALT/SGPT) 21 Alkaline Phosphatase 86 Troponin I < 0.012 Total Protein 7.8 Albumin 4.2 Globulin 3.60 H Albumin/Globulin Ratio 1.16 Lipase 182 Free Thyroxine 1.50 Hemoglobin A1c 5.7 Phosphorus Level 4.1 Magnesium Level 2.0 Triglycerides Level 145 Cholesterol Level 268 H LDL Cholesterol, Calculated 186 HDL Cholesterol 53 Cholesterol/HDL Ratio 5.0 Thyroid Stimulating Hormone (TSH) 0.607 Medications Medication Current Medications Pantoprazole (Protonix Iv) 40 mg BID@06,18 IV Last administered on 09/20/18at 06:05; Admin Dose 40 MG; Start 09/19/18 at 18:00 Simethicone (Mylicon) 80 mg QID PRN PO DISTENSION/GAS/BLOATING; Start 09/19/18 at 14:00 IV Flush (NS 3 ml) 3 ml PER PROTOCOL IV ; Start 09/19/18 at 14:30 Ondansetron HCl (Zofran Inj) 4 mg Q6H PRN IV NAUSEA/VOMITING Last administered on 09/20/18at 02:53; Admin Dose 4 MG; Start 09/19/18 at 14:30 Acetaminophen (Tylenol Tab) 650 mg Q6H PRN PO .PAIN 1-3 OR TEMP Last administered on 09/19/18at 23:59; Admin Dose 650 MG; Start 09/19/18 at 14:30 Acetaminophen/ Hydrocodone Bitart ([place] (5/325)) 1 tab Q6H PRN PO .MOD PAIN 4- 6; Start 09/19/18 at 14:30 Morphine Sulfate (morphine) 2 mg Q4H PRN IV .SEVERE PAIN 7-10; Start 09/19/18 at 14:30 Docusate Sodium (Colace) 100 mg Q12H PRN PO .CONSTIPATION; Start 09/19/18 at 14:30 Magnesium Hydroxide (Milk Of Mag) 30 ml DAILY PRN PO .CONSTIPATION; Start 09/19/18 at 14:30 Sodium Chloride 1,000 ml @ 75 mls/hr [id number] IV Last administered on 09/19/18at 20:13; Admin Dose 75 MLS/HR; Start 09/19/18 at 14:06 Lorazepam (Ativan) 0.5 mg Q6H PRN IV ANXIETY Last administered on 09/20/18at 03:07; Admin Dose 0.5 MG; Start 09/19/18 at 14:30 Albuterol/ Ipratropium (Duoneb) 3 ml Q4H RESP THERAPY PRN HHN SHORTNESS OF SANT[place] ATH; Start 09/19/18 at 14:30 Hydralazine HCl (Apresoline) 10 mg Q6H PRN IV ELEVATED BLOOD PRESSURE; Start 09/19/18 at 14:30 Nitroglycerin (Nitroglycerin (Sl Tab) 0.4 Mg) 1 tab Q5M PRN SL ANGINA; Start 09/19/18 at 14:30 Amlodipine Besylate (Norvasc) 5 mg DAILY PO Last administered on 09/20/18at 08:22; Admin Dose 5 MG; Start 09/20/18 at 09:00 Clonidine (Catapres) 0.3 mg TID PRN PO PRN SBP > 160; Start 09/19/18 at 14:30 Betamethasone/ Clotrimazole (Lotrisone Cr) 1 applic BID TOP ; Start 09/19/18 at 21:00 Hydralazine HCl (Apresoline) 100 mg TID PO Last administered on 09/20/18at 08:21; Admin Dose 100 MG; Start 09/19/18 at 21:00 Levothyroxine Sodium (Synthroid) 25 mcg BEFORE BREAKFAST PO ; Start 09/20/18 at 07:00 Meclizine HCl (Antivert) 25 mg BID PRN PO DIZZINESS; Start 09/19/18 at 14:30 Mirtazapine (Remeron) 30 mg DAILY PO Last administered on 09/20/18at 08:22; Admin Dose 30 MG; Start 09/20/18 at 09:00 Triamcinolone Acetonide (Kenalog 0.1% Cr) 1 applic TID TOP ; Start 09/19/18 at 21:00 Zolpidem Tartrate (Ambien) 5 mg QHS PRN PO INSOMNIA Last administered on 09/20/18at 00:05; Admin Dose 5 MG; Start 09/19/18 at 14:30 Metoprolol Tartrate (Lopressor) 100 mg BID PO Last administered on 09/20/18at 08:21; Admin Dose 100 MG; Start 09/19/18 at 21:00 Verapamil HCl (Isoptin Sr) 120 mg DAILY PO ; Start 09/20/18 at 09:00 Atorvastatin Calcium (Lipitor) 80 mg DAILY@21 PO Last administered on 09/19/18at 20:24; Admin Dose 80 MG; Start 09/19/18 at 21:00 DELGADO OSORIO September 20, 2018 10:34
[2018-09-20] MEDS: VERAPAMIL (SR) 120 MG TAB PO SCH (11:25)
[2018-09-20] MEDS: TRIAMCINOLONE ACET 0.1% 15 GM CR TOP SCH ×3 (13:00→21:00)
--- NOTE | 2018-09-20 14:28 | PREAC ---
Date/Time of Note Date/Time of Note DATE: 09/20/18 TIME: 14:26 Anesthesia Eval and Record Evaluation Time Pre-Procedure Interview DATE: 09/20/18 TIME: 14:26 Age 73 Sex female NPO: 8 hrs Preoperative diagnosis EPIGASTRIC PAIN Planned procedure EGD WITH BX Past Medical History Past Medical History: Includes Cardio: HTN, Arrythmia (A FIB) Endo: Hypothyroid Surgery & Anesthesia Issues No known issue Meds Anticoagulation: No Beta Susan within 24 hr: No Reason Beta Susan not given: Pt. not on B-Susan Active Scripts Ondansetron (Ondansetron Odt) 4 Mg Tab.rapdis, 4 MG PO Q6H PRN for NAUSEA AND/OR VOMITING, #10 TAB Prov:WILLIE FARIAS MD 12/20/17 Reported Medications Acetaminophen* (Acetaminophen*) 500 MG Extra Strength Tablet, 500 MG PO Q4H PRN for PAIN AND OR ELEVATED TEMP, TAB 09/19/18 Nitroglycerin* (Nitrostat*) 0.4 Mg Tab.subl, 0.4 MG SL Q5MIN PRN for CHEST PAIN, BOTTLE 09/19/18 Hydralazine Hcl* (Hydralazine Hcl*) 100 Mg Tablet, 1 TAB ORAL TID 09/19/18 Diltiazem Hcl (DILTIAZEM 24HR CD) 180 Mg Cap.er.24h, 1 CAP ORAL DAILY 09/19/18 Metoprolol Tartrate (Metoprolol Tartrate) 100 Mg Tablet, 1 TAB ORAL BID 09/19/18 Aspirin (Aspirin) 81 Mg Chew, 1 TAB ORAL DAILY 09/19/18 Triamcinolone Acetonide* (Kenalog*) 0.1%-15GM Cr, 1 APPLIC TOP TID, #1 TUB 07/06/17 Donepezil* (Donepezil*) 10 Mg Tablet, 10 MG PO DAILY, #30 TAB 07/06/17 Linaclotide (LINZESS) 145 Mcg Capsule, 145 MCG PO DAILY, #30 CAP 07/06/17 Rosuvastatin Calcium* (Crestor*) 20 Mg Tablet, 20 MG PO QHS, #30 TAB 07/06/17 Esomeprazole Mag Trihydrate (Nexium) 40 Mg Capsule.dr, 40 MG PO DAILY, #30 CAP 07/06/17 Mirtazapine* (Mirtazapine*) 30 Mg Tablet, 30 MG PO DAILY, TAB 07/06/17 Losartan-Hydrochlorothiazide (Losartan-HCTZ) 100-25 Mg Tab, 1 TAB PO DAILY, TAB 07/06/17 Zolpidem Tartrate* (Zolpidem Tartrate*) 5 Mg Tablet, 5 MG PO QHS PRN for INSOM BANDAR, #30 TAB 07/06/17 Amlodipine Besylate* (Norvasc*) 5 Mg Tablet, 5 MG PO DAILY, TAB 07/06/17 Verapamil Hcl* (Verapamil ER*) 120 Mg Cap24h.pel, 120 MG PO DAILY, CAP 07/06/17 Clotrimazole-Betamethasone Diprop (Clotrimazole-Betamethasone Diprop) 15 Gm Cream.gm., 1 APPLIC TOP BID, TUB 07/06/17 Clonidine Patch (CLONIDINE PATCH) 0.3 Mg/24 Hr Patch, 1 PATCH.WK TD Q7D, #4 PATCH.WK ON Monday07/06/17 Levothyroxine Sodium* (Levothyroxine Sodium*) 25 Mcg Tablet, 25 MCG PO BEFORE BREAKFAST, #30 TAB 07/06/17 Meclizine Hcl* (Meclizine Hcl*) 25 Mg Tablet, 25 MG PO BID PRN for DIZZINESS, TAB 07/06/17 Clonidine Hcl* (Clonidine Hcl*) 0.3 Mg Tablet, 0.3 MG PO TID PRN for HTN, TAB 07/06/17 Discontinued Reported Medications Tramadol Hcl* (Ultram*) 50 Mg Tablet, 50 MG PO BID PRN for PAIN, TAB 07/06/17 Metformin Hcl* (Metformin Hcl*) 500 Mg Tablet, 500 MG PO WITH BREAKFAST DINNE, #60 TAB 07/06/17 Naproxen* (Naproxen*) 500 Mg Tablet, 500 MG PO DAILY, TAB 07/06/17 Hydrochlorothiazide* (Hydrochlorothiazide*) 25 Mg Tab, 25 MG PO DAILY, #30 TAB 07/06/17 Acetaminophen with Codeine (Acetaminophen-Cod #3 Tablet) 1 Each Tablet, 1 TAB PO DAILY PRN for NEEDED, #20 TAB 07/06/17 Discontinued Scripts Hydrocodone/Acetaminophen ([place] 10-325 Tablet) 1 Each Tablet, 1 TAB PO Q6H PRN for PAIN, #7 TAB Prov:WILLIE FARIAS MD 12/20/17 Lorazepam* (Ativan*) 0.5 Mg Tablet, 0.5 MG PO TID PRN for ANXIETY, #12 TAB Prov:JIN PEDRAZA MD 07/28/17 Cephalexin* (Keflex*) 500 Mg Capsule, 500 MG PO QID for 5 Days, CAP Prov:JIN PEDRAZA MD 07/28/17 Current Medications Pantoprazole (Protonix Iv) 40 mg BID@,18 IV Last administered on 09/20/18at 06:05; Admin Dose 40 MG; Start 09/19/18 at 18:00 Simethicone (Mylicon) 80 mg QID PRN PO DISTENSION/GAS/BLOATING; Start 09/19/18 at 14:00 IV Flush (NS 3 ml) 3 ml PER PROTOCOL IV ; Start 09/19/18 at 14:30 Ondansetron HCl (Zofran Inj) 4 mg Q6H PRN IV NAUSEA/VOMITING Last administered on 09/20/18at 02:53; Admin Dose 4 MG; Start 09/19/18 at 14:30 Acetaminophen (Tylenol Tab) 650 mg Q6H PRN PO .PAIN 1-3 OR TEMP Last administered on 09/19/18at 23:59; Admin Dose 650 MG; Start 09/19/18 at 14:30 Acetaminophen/ Hydrocodone Bitart ([place] (5/325)) 1 tab Q6H PRN PO .MOD PAIN 4- 6; Start 09/19/18 at 14:30 Morphine Sulfate (morphine) 2 mg Q4H PRN IV .SEVERE PAIN 7-10; Start 09/19/18 at 14:30 Docusate Sodium (Colace) 100 mg Q12H PRN PO .CONSTIPATION; Start 09/19/18 at 14:30 Magnesium Hydroxide (Milk Of Mag) 30 ml DAILY PRN PO .CONSTIPATION; Start 09/19/18 at 14:30 Sodium Chloride 1,000 ml @ 75 mls/hr [id number] IV Last administered on 09/19/18at 20:13; Admin Dose 75 MLS/HR; Start 09/19/18 at 14:06 Lorazepam (Ativan) 0.5 mg Q6H PRN IV ANXIETY Last administered on 09/20/18at 03:07; Admin Dose 0.5 MG; Start 09/19/18 at 14:30 Albuterol/ Ipratropium (Duoneb) 3 ml Q4H RESP THERAPY PRN HHN SHORTNESS OF BREATH; Start 09/19/18 at 14:30 Hydralazine HCl (Apresoline) 10 mg Q6H PRN IV ELEVATED BLOOD PRESSURE Last administered on 09/20/18at 11:25; Admin Dose 10 MG; Start 09/19/18 at 14:30 Nitroglycerin (Nitroglycerin (Sl Tab) 0.4 Mg) 1 tab Q5M PRN SL ANGINA; Start 09/19/18 at 14:30 Amlodipine Besylate (Norvasc) 5 mg DAILY PO Last administered on 09/20/18at 08:22; Admin Dose 5 MG; Start 09/20/18 at 09:00 Clonidine (Catapres) 0.3 mg TID PRN PO PRN SBP > 160; Start 09/19/18 at 14:30 Betamethasone/ Clotrimazole (Lotrisone Cr) 1 applic BID TOP ; Start 09/19/18 at 21:00 Hydralazine HCl (Apresoline) 100 mg TID PO Last administered on 09/20/18at 08:21; Admin Dose 100 MG; Start 09/19/18 at 21:00 Levothyroxine Sodium (Synthroid) 25 mcg BEFORE BREAKFAST PO ; Start 09/20/18 at 07:00 Meclizine HCl (Antivert) 25 mg BID PRN PO DIZZINESS; Start 09/19/18 at 14:30 Mirtazapine (Remeron) 30 mg DAILY PO Last administered on 09/20/18at 08:22; Admin Dose 30 MG; Start 09/20/18 at 09:00 Triamcinolone Acetonide (Kenalog 0.1% Cr) 1 applic TID TOP ; Start 09/19/18 at 21:00 Zolpidem Tartrate (Ambien) 5 mg QHS PRN PO INSOMNIA Last administered on 09/20/18at 00:05; Admin Dose 5 MG; Start 09/19/18 at 14:30 Metoprolol Tartrate (Lopressor) 100 mg BID PO Last administered on 09/20/18at 08:21; Admin Dose 100 MG; Start 09/19/18 at 21:00 Verapamil HCl (Isoptin Sr) 120 mg DAILY PO Last administered on 09/20/18at 11:25; Admin Dose 120 MG; Start 09/20/18 at 09:00 Atorvastatin Calcium (Lipitor) 80 mg DAILY@21 PO Last administered on 09/19/18at 20:24; Admin Dose 80 MG; Start 09/19/18 at 21:00 Diltiazem HCl (Cardizem Cd) 180 mg DAILY PO ; Start 09/21/18 at 09:00 Meds reviewed: Yes Allergies Coded Allergies: No Known Allergies (Verified Allergy, Unknown, 09/19/18) Allergies Reviewed: Yes Labs/Studies Labs Reviewed: Reviewed by anesthesiologist Result Diagram: 09/20/18 0543 09/20/18 0543 Laboratory Tests 09/20/18 05:43 test: N/A Pre-procedure Exam Last vitals Vital Signs Date Temp Pulse Resp B/P (MAP) Pulse Ox O2 O2 Flow FiO2 Time Delivery Rate 09/20/18 98.6 22 22 158/81 98 Room Air 14:00 (106) Airway: Adequate mouth opening, Adequate thyromental dist Mallampati: Mallampati II Teeth: Normal Lung: Normal Heart: Normal ASA Physical Status ASA physical status: 3 Emergency: None Planned Anesthetic General/MAC: MAC Planned Pain Management Parenteral pain med Pre-operative Attestations Prior to commencing anesthesia and surgery, the patient was re-evaluated, there was verification of: *The patient's identity *The results of appropriate recent lab work and preoperative vital signs *The above evaluation not changing prior to induction *Anesthetic plan, risk benefits, alternative and complications discussed with patient/family; questions answered; patient/family understands, accepts and wishes to proceed. JOSE ALFREDO VALLEJO September 20, 2018 14:28
[2018-09-20] MEDS ORDERED: ONDANSETRON 4 MG INJ IV PRN (14:30)
[2018-09-20] MEDS ORDERED: EPHEDrine SULFATE 50 MG/5 ML SYG IV PRN ×2 (14:30→16:00)
[2018-09-20] MEDS ORDERED: DIPHENHYDRAMINE 50 MG INJ IV PRN (14:30)
[2018-09-20] MEDS ORDERED: ALBUTEROL 0.083% (NEB) 2.5 MG/3 ML AMP HHN PRN (14:30)
[2018-09-20] MEDS ORDERED: FENTAnyl 50 MCG/ML VIAL IV PRN (14:30)
[2018-09-20] MEDS ORDERED: LABETALOL HCL 20MG INJ IV PRN ×2 (14:30→16:00)
[2018-09-20] MEDS ORDERED: hydrALAzine 20 MG INJ IV PRN ×2 (14:30→16:00)
[2018-09-20] MEDS ORDERED: PROPOFOL 40 ML ONE (14:39)
[2018-09-20] MEDS ORDERED: LIDOCAINE 2% (SDV) 5 ML INJ ONE (14:40)
--- NOTE | 2018-09-20 15:18 | HPN ---
Date/Time of Note Date/Time of Note DATE: 09/20/18 TIME: 15:17 Interval H&P Admission Note Pt. seen H&P reviewed: No system changes SIDNEY CANNON September 20, 2018 15:17
--- NOTE | 2018-09-20 15:43 | PAC ---
Date/Time of Note Date/Time of Note DATE: 09/20/18 TIME: 15:42 Post-Anesthesia Notes Post-Anesthesia Note Last documented vital signs Vital Signs Date Temp Pulse Resp B/P (MAP) Pulse Ox O2 O2 Flow FiO2 Time Delivery Rate 09/20/18 98.6 22 22 158/81 98 Room Air 1542 (106) Activity: WNL Respiratory function: WNL Cardiovascular function: WNL Mental status: Baseline Pain reasonably controlled: Yes Hydration appropriate: Yes Nausea/Vomiting absent: Yes JOSE ALFREDO VALLEJO September 20, 2018 15:42
[2018-09-20] MEDS: BETAMETHASONE/CLOTRIMAZOLE 15 GM CR TOP SCH ×2 (17:27→21:00)
--- NOTE | 2018-09-20 19:11 | RADRPT ---
Vent Rate: 118 bpm RR Interval: [address] Interval: 0 msec QRS Duration: 78 msec QT Interval: 334 msec QTC Interval: 468 msec P-R-T Howe: 0 - -13 - 58 degrees Atrial fibrillation with rapid ventricular response with premature ventricular or aberrantly conducted complexes Abnormal ECG Electronically Signed By: Art Juan
[2018-09-20] MEDS: ATORVASTATIN 80 MG TAB PO SCH (21:29)
[2018-09-21] VITALS (7 sets, daily range): BP systolic 106–160; BP diastolic 64–84; PULSE 60–107; RESP 16–19
[2018-09-21] MEDS: SOD CHLORIDE 0.45% 1,000 ML IV SCH (06:06)
[2018-09-21] MEDS: LEVOTHYROXINE 25 MCG TAB PO SCH (06:24)
[2018-09-21] MEDS: PANTOPRAZOLE 40 MG INJ IV SCH (06:24)
[2018-09-21] MEDS ORDERED: DILTIAZEM (CD) 180 MG CAP PO SCH (09:00)
[2018-09-21] MEDS: MIRTAZAPINE 15 MG TAB PO SCH (09:00)
[2018-09-21] MEDS: VERAPAMIL (SR) 120 MG TAB PO SCH (09:13)
[2018-09-21] MEDS: TRIAMCINOLONE ACET 0.1% 15 GM CR TOP SCH (09:13)
[2018-09-21] MEDS: BETAMETHASONE/CLOTRIMAZOLE 15 GM CR TOP SCH (09:13)
[2018-09-21] MEDS: METOPROLOL 100 MG TAB PO SCH (09:14)
[2018-09-21] MEDS: AMLODIPINE 5 MG TAB PO SCH (09:14)
--- NOTE | 2018-09-21 11:18 | PDOCDIS ---
Discharge Instructions CONDITION [id number] Patient Condition: [id number] Stable HOME CARE INSTRUCTIONS: [id number] Diet Instructions: [id number] Low Fat /Cholesterol ACTIVITY: [id number] Activity Restrictions: [id number] Slowly Increase Activity Rest between Activity Avoid heavy lifting FOLLOW UP/APPOINTMENTS Follow-up Plan Please take your medications as prescribed, see your doctor in the clinic in the next 1 week. DELGADO OSORIO September 21, 2018 11:18
[2018-09-21] MEDS ORDERED: SIME80TA60 PO (11:20)
[2018-09-21] MEDS ORDERED: PANT40TA4 PO (11:20)
--- NOTE | 2018-09-21 11:27 | DS ---
Date/Time of Note Date/Time of Note DATE: 09/21/18 TIME: 11:22 Discharge Summary Admission/Discharge Info Admit Date/Time September 19, 2018 at 15:32 Discharge Date/Time Discharge Diagnosis # Epigastric pain- likely secondary to gastritis -confirmed on EGD, improved now # Hypertension # History of hypothyroidism. Patient Condition: Stable Hx of Present Illness 73-year-old female with past medical history of hypertension, hypothyroidism, possible anxiety, questionable diabetes, who comes in with epigastric pain. Most of the information is obtained from ER documentation as the patient is unable to provide full HPI secondary to a language barrier at this time. Some subjective fevers. Her symptoms have been going on for the last 2 days. She had some nausea symptoms, but not vomiting. In the ER, to the staff she denied chest pain or shortness of breath, no upper or lower GI bleeding. That is the full extent of the review of systems that could be obtained at this time. Appar ently the patient has a prior history of gastritis as well, ran out of her medications for this a few months ago. When she arrived, she was seen by GI team and in the ER today, she had elevated blood pressure 177/105 and also for epigastric pain she received pain control medications and GI cocktail as well as Pepcid and Protonix. Hospital Course Patient was admitted and seen by GI team during this hospital stay. Patient underwent EGD that showed mild gastritis and small hiatal hernia. Patient symptoms improved after getting the GI cocktail along with the IV PPI. She was able to ambulate, tolerated p.o. diet. She took her blood pressure medicines and her blood pressure was stable overall during the hospital stay. Labs are stable as well. Her A1c was found to be 5.7. Patient was strongly encouraged to adhere to her new medications for her mild gastritis and will be discharged later today home in improved condition. See below for full list of discharge medications. Home Meds Active Scripts Simethicone* (Mylicon*) 80 Mg Tab, 80 MG PO QID PRN for DISTENSION/GAS/BLOATING, #120 TAB 1 Refill Prov:DELGADO OSORIO S. 09/21/18 Pantoprazole* (Pantoprazole*) 40 Mg Tablet.dr 40 MG PO BID@06,18, #60 2 Refills Prov:DELGADO OSORIO S. 09/21/18 Ondansetron (Ondansetron Odt) 4 Mg Tab.rapdis, 4 MG PO Q6H PRN for NAUSEA AND/OR VOMITING, #10 TAB Prov:WILLIE FARIAS MD 12/20/17 Reported Medications Acetaminophen* (Acetaminophen*) 500 MG Extra Strength Tablet, 500 MG PO Q4H PRN for PAIN AND OR ELEVATED TEMP, TAB 09/19/18 Nitroglycerin* (Nitrostat*) 0.4 Mg Tab.subl, 0.4 MG SL Q5MIN PRN for CHEST PAIN, BOTTLE 09/19/18 Hydralazine Hcl* (Hydralazine Hcl*) 100 Mg Tablet, 1 TAB ORAL TID 09/19/18 Diltiazem Hcl (DILTIAZEM 24HR CD) 180 Mg Cap.er.24h, 1 CAP ORAL DAILY 09/19/18 Metoprolol Tartrate (Metoprolol Tartrate) 100 Mg Tablet, 1 TAB ORAL BID 09/19/18 Aspirin (Aspirin) 81 Mg Chew, 1 TAB ORAL DAILY 09/19/18 Triamcinolone Acetonide* (Kenalog*) 0.1%-15GM Cr, 1 APPLIC TOP TID, #1 TUB 07/06/17 Donepezil* (Donepezil*) 10 Mg Tablet, 10 MG PO DAILY, #30 TAB 07/06/17 Linaclotide (LINZESS) 145 Mcg Capsule, 145 MCG PO DAILY, #30 CAP 07/06/17 Rosuvastatin Calcium* (Crestor*) 20 Mg Tablet, 20 MG PO QHS, #30 TAB 07/06/17 Esomeprazole Mag Trihydrate (Nexium) 40 Mg Capsule.dr, 40 MG PO DAILY, #30 CAP 07/06/17 Mirtazapine* (Mirtazapine*) 30 Mg Tablet, 30 MG PO DAILY, TAB 07/06/17 Losartan-Hydrochlorothiazide (Losartan-HCTZ) 100-25 Mg Tab, 1 TAB PO DAILY, TAB 07/06/17 Zolpidem Tartrate* (Zolpidem Tartrate*) 5 Mg Tablet, 5 MG PO QHS PRN for INSOMNIA, #30 TAB 07/06/17 Amlodipine Besylate* (Norvasc*) 5 Mg Tablet, 5 MG PO DAILY, TAB 2/22/18 Verapamil Hcl* (Verapamil ER*) 120 Mg Cap24h.pel, 120 MG PO DAILY, CAP 07/06/17 Clotrimazole-Betamethasone Diprop (Clotrimazole-Betamethasone Diprop) 15 Gm Cream.gm., 1 APPLIC TOP BID, TUB 07/06/17 Clonidine Patch (CLONIDINE PATCH) 0.3 Mg/24 Hr Patch, 1 PATCH.WK TD Q7D, #4 PATCH.WK ON Monday07/06/17 Levothyroxine Sodium* (Levothyroxine Sodium*) 25 Mcg Tablet, 25 MCG PO BEFORE BREAKFAST, #30 TAB 07/06/17 Meclizine Hcl* (Meclizine Hcl*) 25 Mg Tablet, 25 MG PO BID PRN for DIZZINESS, TAB 07/06/17 Clonidine Hcl* (Clonidine Hcl*) 0.3 Mg Tablet, 0.3 MG PO TID PRN for HTN, TAB 07/06/17 Discontinued Reported Medications Tramadol Hcl* (Ultram*) 50 Mg Tablet, 50 MG PO BID PRN for PAIN, TAB 07/06/17 Metformin Hcl* (Metformin Hcl*) 500 Mg Tablet, 500 MG PO WITH BREAKFAST DINNE, #60 TAB 07/06/17 Naproxen* (Naproxen*) 500 Mg Tablet, 500 MG PO DAILY, TAB 07/06/17 Hydrochlorothiazide* (Hydrochlorothiazide*) 25 Mg Tab, 25 MG PO DAILY, #30 TAB 07/06/17 Acetaminophen with Codeine (Acetaminophen-Cod #3 Tablet) 1 Each Tablet, 1 TAB PO DAILY PRN for NEEDED, #20 TAB 07/06/17 Discontinued Scripts Hydrocodone/Acetaminophen ([place] 10-325 Tablet) 1 Each Tablet, 1 TAB PO Q6H PRN for PAIN, #7 TAB Prov:WILLIE FARIAS MD 12/20/17 Lorazepam* (Ativan*) 0.5 Mg Tablet, 0.5 MG PO TID PRN for ANXIETY, #12 TAB Prov:JIN PEDRAZA MD 07/28/17 Cephalexin* (Keflex*) 500 Mg Capsule, 500 MG PO QID for 5 Days, CAP Prov:JIN PEDRAZA MD 07/28/17 Follow-up Plan Please take your medications as prescribed, see your doctor in the clinic in the next 1 week. Primary Care Provider Not On Staff Doctor Time spent on discharge: > 30 minutes Pending Labs Laboratory Tests Test 09/21/18 05:43 White Blood Count 7.0 10^3/ul (4.8-10.8) Red Blood Count 4.41 10^6/ul (4.20-5.40) Hemoglobin 12.6 g/dl (12.0-16.0) Hematocrit 39.6 % (37.0-47.0) Mean Corpuscular Volume 89.8 fl (82.0-101.0) Mean Corpuscular Hemoglobin 28.6 pg (29.0-33.0) Mean Corpuscular Hemoglobin Concent 31.8 g/dl (32.0-37.0) Red Cell Distribution Width 13.5 % (11.5-14.5) Platelet Count 353 10^3/UL (140-415) Mean Platelet Volume 10.3 fl (7.4-10.4) Immature Granulocytes % 0.400 % (0.001-0.429) Neutrophils % 58.9 % (39.0-77.0) Lymphocytes % 33.2 % (15.0-51.0) Monocytes % 6.0 % (0.0-11.0) Eosinophils % 1.1 % (0.0-7.0) Basophils % 0.4 % (0.0-2.0) Nucleated Red Blood Cells % 0.0 /100WBC (0.0-0.0) Immature Granulocytes # 0.030 10^3/ul (0.0-0.031) Neutrophils # 4.1 10^3/ul (1.6-7.5) Lymphocytes # 2.3 10^3/ul (0.8-2.9) Monocytes # 0.4 10^3/ul (0.3-0.9) Eosinophils # 0.1 10^3/ul (0.0-0.5) Basophils # 0.0 10^3/ul (0.0-0.1) Nucleated Red Blood Cells # 0.0 10^3/ul (0.0-0.0) Sodium Level 143 mmol/L (135-144) Potassium Level 3.6 mmol/L (3.5-5.1) Chloride Level 113 mmol/L (97-110) Carbon Dioxide Level 23 mmol/L (21-31) Anion Gap 7 (5-13) Blood Urea Nitrogen 9 mg/dl (7-20) Creatinine 0.69 mg/dl (0.44-1.00) Est Glomerular Filtrat Rate mL/min mL/min (>60) Glucose Level 115 mg/dl (70-220) Calcium Level 9.0 mg/dl (8.4-10.2) DELGADO OSORIO September 21, 2018 11:27
[2018-09-21] MEDS: ACETAMINOPHEN 325 MG TAB PO PRN (14:31)
[2018-09-21] MEDS ORDERED: PANTOPRAZOLE (EC) 40 MG TAB PO SCH (18:00)
== END 2018-09-21 14:44 | disposition home or self-care (01) ==
LOC: E/R 10:11 → SUATTDRO 14:06 → 2NE 15:32 → 6WM 21:50
PROVIDERS: ADMIT Hospitalist; ATTEND Hospitalist
DX: K29.50 Unspecified chronic gastritis without bleeding (principal); K44.9 Diaphragmatic hernia without obstruction or gangrene; I10 Essential (primary) hypertension; E03.9 Hypothyroidism, unspecified; I48.91 Unspecified atrial fibrillation; Z79.82 Long term (current) use of aspirin
CPT/HCPCS: 36415; 43239; 71045; 74018; 80048; 80053; 80061; 83036; 83690; 83735; 84100; 84439; 84443; 84484; 85025; 85610; 85730; 88305; 88312; 92610; 93005; 96374; 96375; 96376; 97161; 97167; 99285; C9113; G0378; J0360; J1885; J2060; J2270; J2405; J7030

== ENCOUNTER 2018-09-30 17:47 | Emergency (ER) | payer MEDICARE, OTHER ==
[~2018-09-30] VITALS: Wt 71.1 kg
[~2018-09-30 17:47] MED LIST changes: +ACET-141 PO; -ACET1TAB40 PO; +ASPI-831 ORAL; -CEPH-443 PO; +DILT180C81 ORAL; -HYDR-3980 PO; +HYDR100T25 ORAL; -HYDR25TA6 PO; -LORA-441 PO; -METF500T24 PO; +METO100T11 ORAL; -NAPR-688 PO; +NITR0.4T39 SL; +PANT40TA4 PO; +SIME80TA60 PO; -TRAM50TA PO
[2018-09-30 17:49] VITALS: Wt 71.1 kg
[2018-09-30] MEDS ORDERED: METOCLOPRAMIDE 10 MG INJ IV ONE (18:30)
[2018-09-30] MEDS ORDERED: METO10TA92 PO ×2 (18:48→22:01)
[2018-09-30] MEDS ORDERED: LORAZEPAM 2 MG INJ IV ONE (19:00)
[2018-09-30] MEDS ORDERED: SOD CHLORIDE 0.9% 500 ML IV STA (19:27)
[2018-09-30] MEDS ORDERED: ONDANSETRON 4 MG INJ IV STA (19:27)
[2018-09-30] MEDS ORDERED: FAMOTIDINE 20 MG INJ IV STA (19:27)
[2018-09-30 22:20] VITALS: BP 156/85; PULSE 98; RESP 16
--- NOTE | 2018-10-01 01:37 | ERD ---
ER Documentation Chief Complaint Chief Complaint AP WITH NAUSEA X 1 WEEK HPI 73-year-old female with a recent diagnosis of gastritis presenting with severe nausea for the past 1 week. Although in the chief complaint states that she has abdominal pain, patient states that she is having no pain at this time. She is only having severe nausea but no vomiting. She is eating and drinking by forcing herself. No melena or hematochezia. She is on pantoprazole twice daily as prescribed from the hospital. However this is not helping with her nausea. She also has Zofran at home which is not helping with her symptoms. Patient has no other associated complaints. She is requesting medications for control of her nausea. She is refusing any labs be done initially. ROS All systems reviewed and are negative except as per history of present illness. Medications Home Meds Active Scripts Metoclopramide* (Reglan*) 10 Mg Tablet, 10 MG PO Q6 PRN for NAUSEA AND/OR VOMITING, #20 TAB Prov:OSCAR WATERMAN MD 09/30/18 Simethicone* (Mylicon*) 80 Mg Tab, 80 MG PO QID PRN for DISTENSION/GAS/BLOATING, #120 TAB 1 Refill Prov:DELGADO OSORIO S. 09/21/18 Pantoprazole* (Pantoprazole*) 40 Mg Tablet.dr, 40 MG PO BID@, #60 2 Refills Prov:DELGADO OSORIO S. 09/21/18 Ondansetron (Ondansetron Odt) 4 Mg Tab.rapdis, 4 MG PO Q6H PRN for NAUSEA AND/OR VOMITING, #10 TAB Prov:WILLIE FARIAS MD 12/20/17 Reported Medications Acetaminophen* (Acetaminophen*) 500 MG Extra Strength Tablet, 500 MG PO Q4H PRN for PAIN AND OR ELEVATED TEMP, TAB 09/19/18 Nitroglycerin* (Nitrostat*) 0.4 Mg Tab.subl, 0.4 MG SL Q5MIN PRN for CHEST PAIN, BOTTLE 09/19/18 Hydralazine Hcl* (Hydralazine Hcl*) 100 Mg Tablet, 1 TAB ORAL TID 09/19/18 Diltiazem Hcl (DILTIAZEM 24HR CD) 180 Mg Cap.er.24h, 1 CAP ORAL DAILY 09/19/18 Metoprolol Tartrate (Metoprolol Tartrate) 100 Mg Tablet, 1 TAB ORAL BID 09/19/18 Aspirin (Aspirin) 81 Mg Chew, 1 TAB ORAL DAILY 09/19/18 Triamcinolone Acetonide* (Kenalog*) 0.1%-15GM Cr, 1 APPLIC TOP TID, #1 TUB 07/06/17 Donepezil* (Donepezil*) 10 Mg Tablet, 10 MG PO DAILY, #30 TAB 07/06/17 Linaclotide (LINZESS) 145 Mcg Capsule, 145 MCG PO DAILY, #30 CAP 07/06/17 Rosuvastatin Calcium* (Crestor*) 20 Mg Tablet, 20 MG PO QHS, #30 TAB 07/06/17 Esomeprazole Mag Trihydrate (Nexium) 40 Mg Capsule.dr, 40 MG PO DAILY, #30 CAP 07/06/17 Mirtazapine* (Mirtazapine*) 30 Mg Tablet, 30 MG PO DAILY, TAB 07/06/17 Losartan-Hydrochlorothiazide (Losartan-HCTZ) 100-25 Mg Tab, 1 TAB PO DAILY, TAB 07/06/17 Zolpidem Tartrate* (Zolpidem Tartrate*) 5 Mg Tablet, 5 MG PO QHS PRN for INSOMNIA, #30 TAB 07/06/17 Amlodipine Besylate* (Norvasc*) 5 Mg Tablet, 5 MG PO DAILY, TAB 07/06/17 Verapamil Hcl* (Verapamil ER*) 120 Mg Cap24h.pel, 120 MG PO DAILY, CAP 07/06/17 Clotrimazole-Betamethasone Diprop (Clotrimazole-Betamethasone Diprop) 15 Gm Cream.gm., 1 APPLIC TOP BID, TUB 07/06/17 Clonidine Patch (CLONIDINE PATCH) 0.3 Mg/24 Hr Patch, 1 PATCH.WK TD Q7D, #4 PATC H.WK ON Monday07/06/17 Levothyroxine Sodium* (Levothyroxine Sodium*) 25 Mcg Tablet, 25 MCG PO BEFORE BREAKFAST, #30 TAB 07/06/17 Meclizine Hcl* (Meclizine Hcl*) 25 Mg Tablet, 25 MG PO BID PRN for DIZZINESS, TAB 07/06/17 Clonidine Hcl* (Clonidine Hcl*) 0.3 Mg Tablet, 0.3 MG PO TID PRN for HTN, TAB 07/06/17 Allergies Allergies: Coded Allergies: No Known Allergies (Verified Allergy, Unknown, 09/19/18) PMhx/Soc History of Surgery: No Anesthesia Reaction: No Hx Neurological Disorder: No Hx Respiratory Disorders: No Hx Cardiac Disorders: Yes (htn, afib) Hx Psychiatric Problems: No Hx Miscellaneous Medical Probl: Yes (HTN , hypothyroidism, gastritis) Hx Alcohol Use: No Hx Substance Use: No Hx Tobacco Use: No Smoking Status: Never smoker FmHx Family History: No diabetes Physical Exam Vitals Vital Signs Date Temp Pulse Resp B/P (MAP) Pulse Ox O2 O2 Flow FiO2 Time Delivery Rate 09/30/18 98 16 156/85 99 Room Air 22:20 (108) 09/30/18 102 18 150/79 Room Air 19:55 (102) 09/30/18 98.2 95 18 159/82 99 17:49 (107) Physical Exam Const: Moaning in distress secondary to nausea, nontoxic, no diaphoresis Head: Atraumatic Eyes: Normal Conjunctiva ENT: Normal External Ears, Nose and Mouth. Neck: Full range of motion. No meningismus. Resp: Clear to auscultation bilaterally Cardio: Regular rate and rhythm, no murmurs Abd: Soft, non tender, non distended. Normal bowel sounds Skin: No petechiae or rashes Back: No midline or flank tenderness Ext: No cyanosis, or edema Neur: Awake and alert Psych: Normal Mood and Affect Result Diagram: 09/30/18 1820 09/30/18 1820 Results 24 hrs Laboratory Tests Test 09/30/18 18:20 White Blood Count 9.6 10^3/ul Red Blood Count 3.94 10^6/ul Hemoglobin 11.3 g/dl Hematocrit 35.2 % Mean Corpuscular Volume 89.3 fl Mean Corpuscular Hemoglobin 28.7 pg Mean Corpuscular Hemoglobin Concent 32.1 g/dl Red Cell Distribution Width 13.2 % Platelet Count 342 10^3/UL Mean Platelet Volume 10.3 fl Immature Granulocytes % 0.300 % Neutrophils % 73.6 % Lymphocytes % 21.7 % Monocytes % 3.8 % Eosinophils % 0.4 % Basophils % 0.2 % Nucleated Red Blood Cells % 0.0 /100WBC Immature Granulocytes # 0.030 10^3/ul Neutrophils # 7.1 10^3/ul Lymphocytes # 2.1 10^3/ul Monocytes # 0.4 10^3/ul Eosinophils # 0.0 10^3/ul Basophils # 0.0 10^3/ul Nucleated Red Blood Cells # 0.0 10^3/ul Sodium Level 141 mmol/L Potassium Level 3.9 mmol/L Chloride Level 110 mmol/L Carbon Dioxide Level 22 mmol/L Anion Gap 9 Blood Urea Nitrogen 10 mg/dl Creatinine 0.76 mg/dl Est Glomerular Filtrat Rate mL/min mL/min Glucose Level 102 mg/dl Calcium Level 9.3 mg/dl Total Bilirubin 0.4 mg/dl Direct Bilirubin 0.00 mg/dl Indirect Bilirubin 0.4 mg/dl Aspartate Amino Transf (AST/SGOT) 19 IU/L Alanine Aminotransferase (ALT/SGPT) 12 IU/L Alkaline Phosphatase 73 IU/L Total Protein 6.9 g/dl Albumin 4.0 g/dl Globulin 2.90 g/dl Albumin/Globulin Ratio 1.37 Current Medications Medications Dose Sig/Anjelica Start Time Status Last (Trade) Ordered Route PRN Stop Time Admin Dose Reason Admin 10 mg ONCE ONCE 09/30/18 DC 09/30/18 Metoclopramid IV 18:30 18:36 e HCl 09/30/18 18:31 (Reglan) Lorazepam 0.5 mg ONCE ONCE 09/30/18 DC 09/30/18 (Ativan) IV 19:00 18:55 09/30/18 19:01 Sodium 500 ml @ Q1H STAT 09/30/18 DC 09/30/18 Chloride 500 mls/hr IV 19:27 19:51 09/30/18 20:26 Ondansetron 4 mg ONCE STAT 09/30/18 DC 09/30/18 HCl (Zofran IV 19:27 19:51 Inj) 09/30/18 19:29 Famotidine 20 mg ONCE STAT 09/30/18 DC 09/30/18 (Pepcid Iv) IV 19:27 19:51 09/30/18 19:29 Procedures/MDM EMERGENT LABS AND DIAGNOSTIC STUDIES: Lab Results above were reviewed and interpreted by me. CBC: no clinically significant anemia or evidence of infection CMP: No evidence of clinically significant electrolyte abnormality, acidosis, renal failure, hypoglycemia, liver disease, or biliary obstruction 12-lead EKG was interpreted by Bushra Waterman MD: Atrial fibrillation with RVR rate of 111 beats per minute Normal axis Normal intervals No acute ST or T wave changes suggestive of acute ischemia or STEMI. Initial Nursing notes reviewed. Previous Medical Records requested via the Electronic Health Record. EMERGENCY DEPARTMENT COURSE / MEDICAL DECISION MAKING: Patient is presenting with severe nausea with no other associated symptoms. She is afebrile with unremarkable vitals. No evidence of acute surgical abdomen. I do not suspect neurologic etiology of her symptoms. I suspect her nausea is secondary to her gastritis. Patient was treated with IV fluids, Reglan, Zofran with improvement of her symptoms. Prescription for Reglan given. Patient to return for any worsening symptoms. Follow-up with PCP recommended within the next 2 to 3 days. Patient's blood pressure was elevated (>120/80) but appears stable without evidence of hypertensive emergency or urgency. The patient was counseled about the risks of hypertension and urged to pursue outpatient monitoring and therapy within a week with their primary care physician. Departure Diagnosis: Primary Impression: Gastritis Gastritis type: unspecified gastritis Chronicity: chronic Gastritis bleeding: without bleeding Qualified Codes: K29.50 - Unspecified chronic gastritis without bleeding Additional Impression: Nausea Condition: Stable Patient Instructions: Nausea, Gastritis (Adult) OSCAR WATERMAN MD October 01, 2018 01:37
== END 2018-09-30 22:25 | disposition home or self-care (01) ==
LOC: E/R 17:47
DX: K29.50 Unspecified chronic gastritis without bleeding (principal); I10 Essential (primary) hypertension; E03.9 Hypothyroidism, unspecified; R40.2142 Coma scale, eyes open, spontaneous, at arrival to emergency department; R40.2362 Coma scale, best motor response, obeys commands, at arrival to emergency department; R40.2252 Coma scale, best verbal response, oriented, at arrival to emergency department; Z79.82 Long term (current) use of aspirin
CPT/HCPCS: 80053; 85025; 96374; 96375; 99284; J2060; J2405; J2765; J7040

== ENCOUNTER 2018-10-27 13:24 | Emergency (ER) | payer MEDICARE, OTHER ==
[~2018-10-27] VITALS: Ht 157.5 cm; Wt 70.5 kg
[~2018-10-27 13:24] MED LIST changes: +METO10TA92 PO
[2018-10-27] MEDS ORDERED: ONDANSETRON 4 MG INJ IV STA (13:33)
[2018-10-27 13:45] VITALS: Ht 157.5 cm; Wt 70.5 kg
[2018-10-27] MEDS ORDERED: KETOROLAC 30 MG INJ IV STA (13:58)
[2018-10-27] MEDS ORDERED: LABETALOL HCL 20MG INJ IV ONE (14:00)
[2018-10-27] MEDS ORDERED: LORAZEPAM 2 MG INJ IV ONE (14:00)
[2018-10-27] MEDS ORDERED: ZOLP5TAB7 PO (15:03)
[2018-10-27] MEDS ORDERED: LEVO25TA6 PO (15:04)
[2018-10-27] MEDS ORDERED: MECL-77 PO (15:04)
[2018-10-27] MEDS ORDERED: ACET1TAB40 PO (15:05)
[2018-10-27] MEDS ORDERED: METF500T24 PO (15:05)
[2018-10-27] MEDS ORDERED: VERA120T10 PO (15:06)
[2018-10-27] MEDS ORDERED: ERGO500013 PO (15:07)
[2018-10-27] MEDS ORDERED: TRAM50TA PO (15:07)
[2018-10-27] MEDS ORDERED: LINA145C PO (15:08)
[2018-10-27] MEDS ORDERED: CRES20 PO (15:08)
[2018-10-27] MEDS ORDERED: ONDA4TAB14 PO (15:12)
[2018-10-27 15:39] VITALS: BP 149/74; PULSE 78; RESP 20
--- NOTE | 2018-10-27 15:55 | ERD ---
ER Documentation Chief Complaint Chief Complaint CODE GREEN: HYPERTENSION, ANXIETY WHILE VISITING ADMITTED MOTHER HPI Patient is a 73-year-old female with hypertension who presents with high blood pressure and vomiting. A code green was called. The patient started with the symptoms 3 to 4 months ago. She is taking blood pressure medicines. Her was admitted today and is very sick. The patient complained of right-sided chest pain as well. Upon review of old medical records this is the patient's ninth visit to the ER since 2009. Review of the emergency department information exchange system shows visits to 4 separate emergency departments for a total of 8 visits over the past 1 year. She does have a primary doctor. ROS All systems reviewed and are negative except as per history of present illness. Medications Home Meds Active Scripts Ondansetron (Ondansetron Odt) 4 Mg Tab.rapdis, 4 MG PO Q6H PRN for NAUSEA AND/OR VOMITING, #10 TAB Prov:NITHIN PARADA MD 10/27/18 Reported Medications Linaclotide (LINZESS) 145 Mcg Capsule, 145 MCG PO DAILY, #30 CAP 10/27/18 Rosuvastatin Calcium* (Crestor*) 20 Mg Tablet, 20 MG PO QHS, #30 TAB 10/27/18 Tramadol Hcl* (Ultram*) 50 Mg Tablet, 50 MG PO NEEDED PRN for PAIN, TAB 10/27/18 Ergocalciferol (Vitamin D2) (VITAMIN D2) 50,000 Unit Capsule, 21689 UNIT PO Q SAT, CAP 10/27/18 Verapamil Hcl* (Verapamil ER*) 120 Mg Tablet.er, 120 MG PO DAILY, TAB.SA 10/27/18 Metformin Hcl* (Metformin Hcl*) 500 Mg Tablet, 500 MG PO NEEDED, #30 TAB 10/27/18 Acetaminophen with Codeine (Acetaminophen-Cod #3 Tablet) 1 Each Tablet, 1 TAB PO NEEDED, #7 TAB 10/27/18 Meclizine Hcl* (Meclizine Hcl*) 25 Mg Tablet, 25 MG PO NEEDED PRN for DIZZINESS, TAB 10/27/18 Levothyroxine Sodium* (Levothyroxine Sodium*) 25 Mcg Tablet, 25 MCG PO BEFORE BREAKFAST, #30 TAB 10/27/18 Zolpidem Tartrate* (Zolpidem Tartrate*) 5 Mg Tablet, 5 MG PO QHS PRN for INSOMNIA, #30 TAB 10/27/18 Discontinued Reported Medications Acetaminophen* (Acetaminophen*) 500 MG Extra Strength Tablet, 500 MG PO Q4H PRN for PAIN AND OR ELEVATED TEMP, TAB 09/19/18 Nitroglycerin* (Nitrostat*) 0.4 Mg Tab.subl, 0.4 MG SL Q5MIN PRN for CHEST PAIN, BOTTLE 09/19/18 Hydralazine Hcl* (Hydralazine Hcl*) 100 Mg Tablet, 1 TAB ORAL TID 09/19/18 Diltiazem Hcl (DILTIAZEM 24HR CD) 180 Mg Cap.er.24h, 1 CAP ORAL DAILY 09/19/18 Metoprolol Tartrate (Metoprolol Tartrate) 100 Mg Tablet, 1 TAB ORAL BID 09/19/18 Aspirin (Aspirin) 81 Mg Chew, 1 TAB ORAL DAILY 09/19/18 Triamcinolone Acetonide* (Kenalog*) 0.1%-15GM Cr, 1 APPLIC TOP TID, #1 TUB 07/06/17 Donepezil* (Donepezil*) 10 Mg Tablet, 10 MG PO DAILY, #30 TAB 07/06/17 Linaclotide (LINZESS) 145 Mcg Capsule, 145 MCG PO DAILY, #30 CAP 07/06/17 Rosuvastatin Calcium* (Crestor*) 20 Mg Tablet, 20 MG PO QHS, #30 TAB 07/06/17 Esomeprazole Mag Trihydrate (Nexium) 40 Mg Capsule.dr, 40 MG PO DAILY, #30 CAP 07/06/17 Mirtazapine* (Mirtazapine*) 30 Mg Tablet, 30 MG PO DAILY, TAB 07/06/17 Losartan-Hydrochlorothiazide (Losartan-HCTZ) 100-25 Mg Tab, 1 TAB PO DAILY, TAB 07/06/17 Zolpidem Tartrate* (Zolpidem Tartrate*) 5 Mg Tablet, 5 MG PO QHS PRN for INSOMNIA, #30 TAB 07/06/17 Amlodipine Besylate* (Norvasc*) 5 Mg Tablet, 5 MG PO DAILY, TAB 07/06/17 Verapamil Hcl* (Verapamil ER*) 120 Mg Cap24h.pel, 120 MG PO DAILY, CAP 07/06/17 Clotrimazole-Betamethasone Diprop (Clotrimazole-Betamethasone Diprop) 15 Gm Cream.gm., 1 APPLIC TOP BID, TUB 07/06/17 Clonidine Patch (CLONIDINE PATCH) 0.3 Mg/24 Hr Patch, 1 PATCH.WK TD Q7D, #4 PATCH.WK ON Monday07/06/17 Levothyroxine Sodium* (Levothyroxine Sodium*) 25 Mcg Tablet, 25 MCG PO BEFORE BREAKFAST, #30 TAB 07/06/17 Meclizine Hcl* (Meclizine Hcl*) 25 Mg Tablet, 25 MG PO BID PRN for DIZZINESS, TAB 07/06/17 Clonidine Hcl* (Clonidine Hcl*) 0.3 Mg Tablet, 0.3 MG PO TID PRN for HTN, TAB 07/06/17 Discontinued Scripts Metoclopramide* (Reglan*) 10 Mg Tablet, 10 MG PO Q6 PRN for NAUSEA AND/OR VOMITING, #20 TAB Prov:OSCAR WATERMAN MD 09/30/18 Simethicone* (Mylicon*) 80 Mg Tab, 80 MG PO QID PRN for DISTENSION/GAS/BLOATING, #120 TAB 1 Refill Prov:DELGADO OSORIO S. 09/21/18 Pantoprazole* (Pantoprazole*) 40 Mg Tablet.dr, 40 MG PO BID@, #60 2 Refills Prov:DELGADO OSORIO S. 09/21/18 Ondansetron (Ondansetron Odt) 4 Mg Tab.rapdis, 4 MG PO Q6H PRN for NAUSEA AND/OR VOMITING, #10 TAB Prov:WILLIE FARIAS MD 12/20/17 Allergies Allergies: Coded Allergies: No Known Allergies (Verified Allergy, Unknown, 10/27/18) PMhx/Soc History of Surgery: No Anesthesia Reaction: No Hx Neurological Disorder: No Hx Respiratory Disorders: No Hx Cardiac Disorders: Yes (htn, afib) Hx Psychiatric Problems: No Hx Miscellaneous Medical Probl: Yes (HTN , hypothyroidism, gastritis) Hx Alcohol Use: No Hx Substance Use: No Hx Tobacco Use: No Smoking Status: Never smoker FmHx Family History: No diabetes Physical Exam Vitals Vital Signs Date Temp Pulse Resp B/P (MAP) Pulse Ox O2 O2 Flow FiO2 Time Delivery Rate 10/27/18 98.4 78 20 149/74 99 Room Air 15:39 (99) 10/27/18 98.4 62 20 133/75 98 Room Air 14:40 (94) 10/27/18 98.0 66 28 158/81 98 Room Air 14:05 (106) 10/27/18 Nasal 2 14:00 Cannula 10/27/18 98.0 71 30 174/83 98 13:45 (113) Physical Exam Const: Mild distress Head: Atraumatic Eyes: Normal Conjunctiva ENT: Normal External Ears, Nose and Mouth. Neck: Full range of motion. No meningismus. Resp: Clear to auscultation bilaterally Cardio: Regular rate and rhythm, no murmurs Abd: Soft, non tender, non distended. Normal bowel sounds Skin: No petechiae or rashes Back: No midline or flank tenderness Ext: No cyanosis, or edema Neur: Awake and alert Psych: Normal Mood and Affect Result Diagram: 10/27/18 1341 10/27/18 1341 Results 24 hrs Laboratory Tests Test 10/27/18 13:41 White Blood Count 10.3 10^3/ul Red Blood Count 4.48 10^6/ul Hemoglobin 12.6 g/dl Hematocrit 39.4 % Mean Corpuscular Volume 87.9 fl Mean Corpuscular Hemoglobin 28.1 pg Mean Corpuscular Hemoglobin Concent 32.0 g/dl Red Cell Distribution Width 13.8 % Platelet Count 391 10^3/UL Mean Platelet Volume 10.1 fl Immature Granulocytes % 0.600 % Neutrophils % 72.9 % Lymphocytes % 22.0 % Monocytes % 3.9 % Eosinophils % 0.4 % Basophils % 0.2 % Nucleated Red Blood Cells % 0.0 /100WBC Immature Granulocytes # 0.060 10^3/ul Neutrophils # 7.5 10^3/ul Lymphocytes # 2.3 10^3/ul Monocytes # 0.4 10^3/ul Eosinophils # 0.0 10^3/ul Basophils # 0.0 10^3/ul Nucleated Red Blood Cells # 0.0 10^3/ul Sodium Level 142 mmol/L Potassium Level 3.8 mmol/L Chloride Level 108 mmol/L Carbon Dioxide Level 23 mmol/L Anion Gap 11 Blood Urea Nitrogen 8 mg/dl Creatinine 0.71 mg/dl Est Glomerular Filtrat Rate mL/min mL/min Glucose Level 132 mg/dl Calcium Level 9.8 mg/dl Total Bilirubin 0.6 mg/dl Direct Bilirubin 0.00 mg/dl Indirect Bilirubin 0.6 mg/dl Aspartate Amino Transf (AST/SGOT) 21 IU/L Alanine Aminotransferase (ALT/SGPT) 12 IU/L Alkaline Phosphatase 71 IU/L Troponin I 0.016 ng/ml Total Protein 7.4 g/dl Albumin 4.4 g/dl Globulin 3.00 g/dl Albumin/Globulin Ratio 1.46 Lipase 66 U/L Current Medications Medications Dose Sig/Anjelica Start Time Status Last (Trade) Ordered Route PRN Stop Time Admin Dose Reason Admin Ondansetron 4 mg ONCE STAT 10/27/18 DC 10/27/18 HCl (Zofran IV 13:33 13:46 Inj) 10/27/18 13:34 Lorazepam 1 mg ONCE ONCE 10/27/18 DC 10/27/18 (Ativan) IV 14:00 13:46 10/27/18 14:01 Labetalol 20 mg ONCE ONCE 10/27/18 DC 10/27/18 HCl IV 14:00 14:10 (Labetalol) 10/27/18 14:01 Ketorolac 30 mg ONCE STAT 10/27/18 DC 10/27/18 Tromethamine IV 13:58 14:03 (Toradol) 10/27/18 13:59 Procedures/MDM EKG read by me: Rate/Rhythm: Regular rate and rhythm at a normal rate Intervals: Normal Impression: No evidence of ischemia or arrhythmia Chest x-ray read by radiology. Patient is a 73-year-old female with hypertension who presents with hypertension and vomiting. She was treated with labetalol and her blood pressure is improved. She was given Zofran and Ativan and her symptoms of vomiting are much better. I do believe there was an element of panic attack possibly brought on by her who is very sick. I doubt acute coronary syndrome, stroke, or serious letter to light abnormality. I believe outpatient management is appropriate but the patient will need close follow-up with the primary doctor within 24 to 48 hours. The patient can return sooner for any worsening symptoms. The patient will be discharged with Zofran. She should continue to take her blood pressure medicines as directed. Departure Diagnosis: Primary Impression: Panic Additional Impressions: Hypertension Hypertension type: essential hypertension Qualified Codes: I10 - Essential (primary) hypertension Vomiting Vomiting type: unspecified Vomiting Intractability: non-intractable Nausea presence: with nausea Qualified Codes: R11.2 - Nausea with vomiting, unspecified Condition: Fair Patient Instructions: High Blood Pressure (Hypertension), Anxiety Reaction, Vomiting (6Y-Adult) Referrals: Your doctor Additional Instructions: Call your primary care doctor TOMORROW for an appointment during the next 1-2 days.See the doctor sooner or return here if your condition worsens before your appointment time. NITHIN PARADA MD Oct 27, 2018 15:55
== END 2018-10-27 15:41 | disposition home or self-care (01) ==
LOC: E/R 13:24
DX: I10 Essential (primary) hypertension (principal); F41.0 Panic disorder [episodic paroxysmal anxiety]; R11.2 Nausea with vomiting, unspecified; E03.9 Hypothyroidism, unspecified; Z79.84 Long term (current) use of oral hypoglycemic drugs
CPT/HCPCS: 36415; 71045; 80053; 83690; 84484; 85025; 93005; 96374; 96375; 99285; J1885; J2060; J2405